=== PATIENT | female | born 1930 | race Caucasian/White ===

== ENCOUNTER 2017-11-05 15:53 | Outpatient (CLI) | payer MEDICARE ==
--- NOTE | 2017-11-06 09:02 | XRAY Report ---
Procedure Date: 11/05/2017 Accession Number: [id number] / [id number] Procedure: XRN - Chest 2 View X-Ray CPT Code: 92897 FULL RESULT: EXAM: Chest 2 View X-Ray DATE: 11/05/2017 4:14 PM CLINICAL HISTORY: COPD COMPARISON: 09/02/2015 TECHNIQUE: 2 views. FINDINGS: Lungs/Pleura: The lungs remain hyperinflated, with by basilar fibrosis. No focal consolidation, effusion, or pneumothorax. Mediastinum: Heart and mediastinal contours are unremarkable. Other: None. IMPRESSION: COPD and fibrosis. No evidence of acute cardiopulmonary disease. [facility]
== END 2017-11-05 15:54 | disposition home or self-care (01) ==
LOC: DI.N 15:53
PROVIDERS: ATTEND Specialist
DX: J44.9 Chronic obstructive pulmonary disease, unspecified (principal); J84.10 Pulmonary fibrosis, unspecified
CPT/HCPCS: 71046

== ENCOUNTER 2018-03-31 12:38 | Outpatient (CLI) | payer MEDICARE, OTHER ==
--- NOTE | 2018-03-31 16:25 | Mammography Report ---
Reason: MASS PAIN IN L BREAST Procedure Date: 03/31/2018 Accession Number: [id number] / [id number] Procedure: TIA - Diagnostic Dig Bilat CPT Code: FULL RESULT: EXAM: Diagnostic Dig Bilat DATE: 03/31/2018 1:26 PM CLINICAL HISTORY: Diagnostic examination. 6 weeks of breast tenderness which is still present but has decreased, left breast. TECHNIQUE: Bilateral CC and MLO views were obtained in 2-D and 3-D tomographic technique. COMPARISON: 03/06/2011 through 10/24/2009. FINDINGS: The breasts demonstrate scattered fibroglandular densities bilaterally. Typically benign vascular calcifications are identified bilaterally. No suspicious finding is seen in the region identified with a palpable marker. A biopsy clip is seen in the left breast, typically benign. No suspicious masses, architectural distortions or calcifications are identified in either breast. IMPRESSION: Benign findings RECOMMENDATION: Recommend routine annual Screening mammography unless otherwise clinically indicated. BIRADS CATEGORY 2: Benign findings STANDARD QUALIFYING STATEMENTS: 1. This examination was not reviewed with the aid of Computer-Aided Detection (CAD). 2. A negative or benign imaging report should not delay biopsy if clinically suspicious findings are present. Consider surgical consultation if warrented. More than 5% of cancers are not identified by imaging. 3. Dense breasts may obscure an underlying neoplasm. 4. This examination was reviewed with the aid of 3D imaging (tomography).
== END 2018-03-31 12:39 | disposition home or self-care (01) ==
LOC: DI 12:38
PROVIDERS: ATTEND Internal Medicine
DX: N63.20 Unspecified lump in the left breast, unspecified quadrant (principal); N64.4 Mastodynia
CPT/HCPCS: 77066